=== PATIENT | male | born 1975 | race Caucasian/White ===

== ENCOUNTER 2020-04-27 23:47 | Emergency (ER) | payer SELFPAY ==
[~2020-04-27] VITALS: Ht 175.3 cm; Wt 97.0 kg
[2020-04-27 23:55] VITALS: BP 135/70
== END 2020-04-28 01:06 | disposition left against medical advice (07) ==
LOC: ER 23:47
DX: S80.862A Insect bite (nonvenomous), left lower leg, initial encounter (principal); I50.9 Heart failure, unspecified; F17.200 Nicotine dependence, unspecified, uncomplicated; W57.XXXA Bitten or stung by nonvenomous insect and other nonvenomous arthropods, initial encounter; Y93.89 Activity, other specified; Y92.89 Other specified places as the place of occurrence of the external cause; Y99.8 Other external cause status
CPT/HCPCS: 99281